=== PATIENT | male | born 1965 | race Caucasian/White ===

== ENCOUNTER → 2017-02-17 | Outpatient (CLI) | payer OTHER ==
--- NOTE | 2017-02-18 15:14 | MRI ---
EXAM DESCRIPTION: Lumbar Spine w/o Contrast CLINICAL HISTORY: SPINAL STENOSIS left-sided radiculopathy COMPARISON: None Available. TECHNIQUE: MRI of the lumbar spine is performed according to our usual protocol with axial and sagittal multi sequence imaging. FINDINGS: MR of the lumbar spine demonstrates multilevel disc desiccation with preservation of vertebral height and mild disc narrowing at L5-S1. A congenitally small tapering thecal sac below the L2-3 level is evident and represents an anatomic variant. The conus is positioned at T12-L1. Retroperitoneal and paraspinous structures are normal. Marrow signal is within the limits of normal. No intradural or intramedullary masses are seen. L1-2: the disc is well hydrated. There is no loss of height. There is no bulging. The facets are unremarkable with no significant hypertrophy. There is no stenosis or impingement. L2-3: the disc is well hydrated. There is no loss of height. There is no bulging. The facets are unremarkable with no significant hypertrophy. There is no stenosis or impingement. L3-4: Disc desiccation with very little annular prominence with moderate facet arthropathy and constitutionally small spinal canal with mild central canal stenosis that is symmetric. Neural foramina are within the limits of normal. L4-5: Disc desiccation with tiny amount of retrolisthesis and mild annular bulge with modest symmetric facet arthropathy and ligamentum flavum hypertrophy with borderline central canal stenosis. Moderately large left anterior extruded disc fragment well above the disc space filling the left L4 neural foramen and left lateral recess and arising from the L4-5 disc far laterally consistent with a small component of far lateral disc protrusion. Markedly narrowed left L4 neural foramen. L5-S1: Disc desiccation and disc space narrowing with moderate annular bulge and constitutionally small canal with thecal sac lower limits of normal with bilateral facet arthropathy left worse than right. Bilateral L5 foraminal stenosis secondary to annular bulge and facet disease without lateralizing herniation. IMPRESSION: 1. Constitutionally small tapering thecal sac and spinal canal below the L2-3 level with mild multifactoral central stenosis at L3-4 and L4-5 and borderline changes L5-S1. 2. Mild annular bulging disc desiccation at L3-4 without lateralizing neural compression. 3. Annular bulge with small left-sided disc protrusion L4-5 with moderately large extruded fragment migrated cephalad on the left with compromise of the left lateral recess and left L4 neural foramen. 4. Disc degeneration and broad-based annular bulge L5-S1 with bilateral foraminal encroachment on this basis with moderate facet arthropathy, slightly worse on the left. Electronically signed by: Connor Springer MD 02/18/2017 3:13 PM [facility]
== END ==
LOC: MRI 12:45
PROVIDERS: ATTEND Nurse Practitioner
DX: M48.061 Spinal stenosis, lumbar region without neurogenic claudication (principal); M51.86 Other intervertebral disc disorders, lumbar region

== ENCOUNTER → 2017-04-29 | Outpatient (CLI) | payer OTHER ==
--- NOTE | 2017-04-29 16:04 | CT ---
Chest CT with intravenous contrast HISTORY: Abnormal CXR R91.8 TECHNIQUE: Routine chest CT protocol following intravenous demonstration of 100 mL Optiray 320 contrast. Image reformations in coronal and sagittal planes. Imaging was performed with automated exposure protocol to minimize radiation dose. COMPARISON: None FINDINGS: No concerning mass nor nodularity identified in either lung. No pneumothorax, airspace consolidation, bronchiectasis nor pleural effusion on either side. Central tracheobronchial tree is unremarkably patent. There is mild widening of the mediastinum with infiltration by benign fatty tissue. Cardiac dimensions are within normal limits without pericardial effusion. Thoracic aorta is normal in caliber without aneurysmal dilatation nor obvious dissection. Incidental note of apparent course of the right subclavian artery arising from distal aortic arch with retroesophageal course. No concerning lymphadenopathy in either axillary region, along the mediastinum nor in either hilar region. Thoracic bony structures are intact without injury nor suspicious lesion. Multilevel degenerative disc disease in thoracic spine. Limited visualization of upper abdomen demonstrates diffuse fatty infiltration throughout the liver without suspicious mass nor abnormal biliary distention. IMPRESSION: 1. No concerning interstitial process in either lung 2. Mild widening of the mediastinum with diffuse infiltration by benign fatty tissue. 3. No concerning thoracic lymphadenopathy 4. 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 Electronically signed by: Martín Wu MD 04/29/2017 4:03 PM [facility]
== END ==
LOC: CT 15:15
PROVIDERS: ATTEND Nurse Practitioner
DX: R91.8 Other nonspecific abnormal finding of lung field (principal); R06.02 Shortness of breath; D72.829 Elevated white blood cell count, unspecified